=== PATIENT | female | born 1985 | race Caucasian/White ===

== ENCOUNTER 2016-10-14 17:16 | Inpatient (IN) | payer SELFPAY ==
[2016-10-14 17:38] VITALS: BMI 23.1
[2016-10-14] MEDS: Lactated Ringer's 1,000 ML IV SCH ×3 (18:20→21:25)
[2016-10-14 18:30] LABS: BASO % 0.3 % (0.0-2.0); EOS % 0.4 % (0.0-4.0); HEMOGLOBIN 11.5 g/dL (12.0-16.0); LYMPH # 0.9 K/uL (1.0-4.3); LYMPH % 13.1 % (20.0-40.0); MEAN CELL VOLUME 92.9 fl (81.0-99.0); MEAN CORPUSCULAR HEMOGLOBIN 31.1 pg (27.0-31.0); MEAN CORPUSCULAR HGB CONC 33.5 g/dL (33.0-37.0); MEAN PLATELET VOLUME 9.5 fl (7.2-11.7); MONO # 0.4 K/uL (0.0-0.8); MONO % 5.4 % (0.0-10.0); NEUT # 5.5 K/uL (1.8-7.0); NEUT % 80.8 % (50.0-75.0); RBC 3.7 Mil/uL (3.80-5.20); RED CELL DISTRIBUTION WIDTH 14.4 % (11.5-14.5); WHITE BLOOD COUNT 6.8 K/uL (4.8-10.8)
[2016-10-14 18:50] LABS: SQUAMOUS EPITHIAL 3 /hpf (0-5); URINE BACTERIA OCC (<OCC); URINE BILIRUBIN NEGATIVE (NEGATIVE); URINE BLOOD SMALL (NEGATIVE); URINE CLARITY CLEAR (Clear); URINE COLOR YELLOW (YELLOW); URINE GLUCOSE (UA) NEG (Normal); URINE LEUKOCYTE ESTERASE NEG Leu/uL (Negative); URINE NITRATE NEGATIVE (NEGATIVE); URINE PROTEIN NEGATIVE (NEGATIVE); URINE UROBILINOGEN 0.2-1.0 mg/dL (0.2-1.0)
--- NOTE | 2016-10-14 18:57 | OBHP ---
Datetime: 10/14/2016 18:36 IP Adm Impression: , intrauterine IP Admit Plan: Observation/Evaluation Admit Comment, IP Provider: 31-year-old 001 at 34 weeks and 2 days gestational age presented t o the ED complaining of contractions. Patient denies any vaginal bleeding or leakage of fluids. Patie nt reports good movement. Patient with a history of complete placenta previa also history of pr ior . Otherwise, patient without complaints. records reviewed. Past medical history none Past surgical history 1 Medications vitamins No known drug allergies Obstetrical history full-term 1 Social history no tobacco, no drugs, no alcohol Physical exam: Referred physical exam findings Assessment: 31-year-old 001 at 34 weeks and 2 days gestational age with placenta previa and prior C-sect ion with contractions. Maternal well-being and well-being reassuring at this time. Patient appe ars reasonably comfortable resting in bed Plan: Continue observation at OB ED IV fluid hydration First dose of betamethasone Check urinalysis, CBC, type and screen Discussed plan with patient and all patient questions answered. Extremities - PN: Normal Abdomen - PN: Normal Back - PN: Normal Lungs - PN: Normal Heart - PN: Normal Neurologic - PN: Normal HEENT - PN: Normal General - PN: Normal FHR - Baseline A Provider: 120s-130s Contraction Comments Provider: q9-10min Comments, ACOG Physical Exam: Abdomen soft, tender, nondistended, gravid No fundal tenderness Pelvic/cervical exam not done due to placenta previa IP Hx Assessment: The History has been Reviewed and is Current EGA AdmitDate IP: 34.2 Vital Signs Provider: Reviewed; Within Normal Limits IP Chief Complaint: Uterine contractions NICHD Variability Prov Fetus A: Moderate 6-25bpm NICHD Accel Fetus A IP Provider: 15X15 FHR Category Provider Fetus A: Category I NICHD Decel Fetus A IP Provider: None
[2016-10-14] MEDS: Betamethasone Soluspan 30 mg/5mL Inj Susp IM SCH (19:25)
[2016-10-15] MEDS: Lactated Ringer's 1,000 ML IV SCH (04:15)
--- NOTE | 2016-10-15 08:26 | OBHP ---
Datetime: 10/15/2016 06:27 IP Adm Impression: , intrauterine IP Admit Plan: Observation/Evaluation Admit Comment, IP Provider: 31-year-old 001 at 34.3 weeks gestational age presented to the ED complaining of contractions. Patient with a history of complete placenta previa also history of prior . Pt reports no contractions and feeling significantly better. Past medical history none Past surgical history 1 Medications vitamins No known drug allergies Obstetrical history full-term 1 Social history no tobacco, no drugs, no alcohol Physical exam: Referred physical exam findings Assessment: 31-year-old 001 at 34.4 weeks gestational age with placenta previa and prior with contractions. reports contraction has resolved and feeling significantly better. Maternal well-being and well-being reassuring at this time. Patient looks comfortable resting in bed. Plan: CBC shows no significant abnormality other than Hgb 11.5 UA is negative for UTI First dose of betamethasone was given Extremities - PN: Normal Abdomen - PN: Normal Back - PN: Normal Lungs - PN: Normal Heart - PN: Normal Neurologic - PN: Normal HEENT - PN: Normal General - PN: Normal FHR - Baseline A Provider: 120-130 Comments, ACOG Physical Exam: Abdomen soft, tender, nondistended, gravid No fundal tenderness Pelvic/cervical exam not done due to placenta previa Gestation - Est Wks by US: 34.3 IP Hx Assessment: The History has been Reviewed and is Current EGA AdmitDate IP: 34.3 Vital Signs Provider: Reviewed IP Chief Complaint: Uterine contractions NICHD Variability Prov Fetus A: Moderate 6-25bpm FHR Category Provider Fetus A: Category I NICHD Decel Fetus A IP Provider: None
--- NOTE | 2016-10-15 13:22 | OBPN ---
Datetime: 10/15/2016 13:00 IP Progress Impression Other: C/S IP Progress Impression: Reassuring heart rate IP Progress Plan: Transfer Pool Provider: Negative Membranes, Provider: Intact FHR - Baseline A Provider: 120 IP Progress Note Comment: OB Hospitalist on-call 34+w C/S x1 Placenta previa admitted for threatened PTL. No VB. She was given a dose of Betamethasone 19:30pm and she is due for another at 19:30pm today. She feels fine. No pain. No VB A: IUP at 34w/Placenta previa/threatened labor/C/S x 1 at 36w PLAN: Case was discussed with Dr Calvert. She will be admitted until delivery. Also, we discuss ed about possible transfer to high risk facility (possible accreta). Condition was explained to pt. She and her understand and their questions answered. [facility] ed to transfer. L_D at [facility] is full. He will make arrangements for transfer tomorrow. NICHD Accel Fetus A IP Provider: 15X15 FHR Category Provider Fetus A: Category I NICHD Variability Prov Fetus A: Moderate 6-25bpm Dilatation, Provider: 0 NICHD Decel Fetus A IP Provider: None Datetime: 10/15/2016 06:27 Gestation - Est Wks by US: 34.3 Vital Signs Provider: Reviewed Datetime: 10/14/2016 18:36 Contraction Comments Provider: q9-10min
[2016-10-15] MEDS ORDERED: Betamethasone Soluspan 30 mg/5mL Inj Susp IM ONE (19:30)
[2016-10-15] MEDS: Betamethasone Soluspan 30 mg/5mL Inj Susp IM SCH (20:01)
--- NOTE | 2016-10-16 07:54 | OBPN ---
Datetime: 10/16/2016 07:30 IP Progress Impression Other: 34w; previous C/S placenta previa IP Progress Impression: Reassuring heart rate; Reactive non-stress test IP Informed Consent Obtain: Risks, Benefits and Alternatives Discussed IP Progress Note Comment: She feels fine. She rec'd last dose of Betamethaosone at 19:30pm. Awaiting transfer to [facility] FHR Category Provider Fetus A: Category I
--- NOTE | 2016-10-16 16:34 | OBDCSUM ---
Datetime: 10/16/2016 16:32 Discharged to, Provider: Other Discharge Comment, Provider: Transfer to [facility] Discharge Diagnosis Prov Other: Transferred to [facility]...34+w placenta previa/Previous C/S x1
== END 2016-10-16 16:30 | disposition short-term general hospital (02) | DRG 886 ==
LOC: H.EROB2 17:16 → H.L&D 21:02 → OBSVTOIN 10-16 07:37
PROVIDERS: ADMIT Obstetrics & Gynecology; ATTEND Obstetrics & Gynecology
PROC: 4A1HXCZ Monitoring of Products of Conception, Cardiac Rate, External Approach (ICD-10-PCS; principal; 2016-10-16)
DX: O44.03 Complete placenta previa NOS or without hemorrhage, third trimester (principal); O60.03 Preterm labor without delivery, third trimester; O34.219 Maternal care for unspecified type scar from previous cesarean delivery; Z3A.34 34 weeks gestation of pregnancy

== ENCOUNTER 2018-07-19 09:41 | Emergency (ER) | payer OTHER ==
[2018-07-19 09:46] VITALS: BMI 25.4
--- NOTE | 2018-07-19 10:24 | ED PDOC ---
History of Present Illness History of Present Illness: 33 year old female with no past medical history who is presenting to the ED for evaluation of fevers, body aches, chills, sore throat, and lower abdominal pain ongoing for 2 days. Patient denies any urinary symptoms, nausea, vomiting, diarrhea, or cough. She offers no other medical complaints at this time. PMD: none provided HPI: Influenza Time Seen by Provider: 07/19/18 10:04 Chief Complaint (Provider): Flu-Like Symptoms History Per: Patient Exam Limitations: no limitations Onset/Duration Of Symptoms: Days (x2) Symptoms include: fever, bodyaches, sore throat. denies: cough, vomiting, diarrhea Past Medical History Reviewed: Historical Data, Nursing Documentation, Vital Signs Vital Signs: Last Vital Signs Temp 100.7 F H 07/19/18 09:44 Pulse 91 H 07/19/18 09:44 Resp 16 07/19/18 09:44 BP 108/62 07/19/18 09:44 Pulse Ox 100 07/19/18 09:44 - Medical History PMH: No Chronic Diseases - Surgical History Surgical History: No Surg Hx - Family History Family History: States: Unknown Family Hx - Social History Current smoker - smoking cessation education provided: No Alcohol: None Drugs: Denies - Home Medications Home Medications: Ambulatory Orders Medication Instructions Recorded Naproxen 500 mg PO BID #20 tablet 08/09/17 Azithromycin [Zithromax] 250 mg PO DAILY #6 tab 07/19/18 - Allergies Allergies/Adverse Reactions: Allergies Allergy/AdvReac Type Severity Reaction Status Date / Time No Known Allergies Allergy Verified 10/14/16 17:37 Review of Systems ROS Statement: Except As Marked, All Systems Reviewed And Found Negative Constitutional: Positive for: Fever, Chills, Other (body aches ) Respiratory: Negative for: Cough Gastrointestinal: Positive for: Abdominal Pain. Negative for: Nausea, Vomiting, Diarrhea Genitourinary Female: Negative for: Dysuria, Frequency, Incontinence, Hematuria Physical Exam - Reviewed Nursing Documentation Reviewed: Yes Vital Signs Reviewed: Yes - Physical Exam Appears: Positive for: Non-toxic, No Acute Distress Head Exam: Positive for: ATRAUMATIC, NORMAL INSPECTION, NORMOCEPHALIC Skin: Positive for: Normal Color, Warm, DRY Eye Exam: Positive for: EOMI, Normal appearance, PERRL ENT: Positive for: Normal ENT Inspection Neck: Positive for: Normal, Painless ROM, Supple Cardiovascular/Chest: Positive for: Regular Rate, Rhythm. Negative for: Murmur Respiratory: Positive for: Normal Breath Sounds. Negative for: Respiratory Distress Gastrointestinal/Abdominal: Positive for: Soft, Tenderness (to bilateral lower quadrants ). Negative for: Mass, Guarding, Rebound Back: Positive for: Normal Inspection. Negative for: L CVA Tenderness, R CVA Tenderness, Vertebral Tenderness Extremity: Positive for: Normal ROM. Negative for: Deformity, Swelling Neurological/Psych: Positive for: Awake, Alert, Normal Tone, Oriented. Negative for: Motor/Sensory Deficits Medical Decision Making Medical Decision Making: Time: 10:09 Plan: --CMP --ED Urine --ED urine dipstick --CBC --Tylenol 65 mg PO --Influenza A B Scribe Attestation: Documented by Brittani Montanez, acting as a scribe for Cecil Cowart MD. Provider Scribe Attestation: All medical record entries made by the Scribe were at my direction and personally dictated by me. I have reviewed the chart and agree that the record accurately reflects my personal performance of the history, physical exam, medical decision making, and the department course for this patient. I have also personally directed, reviewed, and agree with the discharge instructions and disposition. - Laboratory Results Result Diagrams: 07/19/18 10:28 07/19/18 10:28 - ECG O2 Sat by Pulse Oximetry: 100 (RA) Pulse Ox Interpretation: Normal Disposition - Clinical Impression Clinical Impression: Pharyngitis - Patient ED Disposition Is Patient to be Admitted: No Counseled Patient/Family Regarding: Studies Performed, Diagnosis, Need For Followup, Rx Given - Disposition Referrals: [facility] [Outside] Disposition: Routine/Home Disposition Time: 13:16 Condition: FAIR Prescriptions: Azithromycin [Zithromax] 250 mg PO DAILY #6 tab Instructions: Sore Throat in Adults Print Language: IRISH
[2018-07-19 10:46] LABS: BASO % 0.2 % (0.0-2.0); HEMOGLOBIN 12.7 g/dL (12.0-16.0); LYMPH # 0.6 K/uL (1.0-4.3); MEAN CELL VOLUME 90.5 fl (81.0-99.0); MEAN CORPUSCULAR HEMOGLOBIN 29.7 pg (27.0-31.0); MEAN CORPUSCULAR HGB CONC 32.8 g/dL (33.0-37.0); MEAN PLATELET VOLUME 9.2 fl (7.2-11.7); MONO # 0.5 K/uL (0.0-0.8); MONO % 4.4 % (0.0-10.0); NEUT % 90.4 % (50.0-75.0); NRBC % 0.1 % (0.0-0.0); PLATELET COUNT 205 K/uL (130-400); RBC 4.28 Mil/uL (3.80-5.20); RED CELL DISTRIBUTION WIDTH 12.9 % (11.5-14.5); WHITE BLOOD COUNT 12.2 K/uL (4.8-10.8)
[2018-07-19 11:06] LABS: ALB/GLOB RATIO 1.3 (1.0-2.1); ALBUMIN 4.9 g/dL (3.5-5.0); ALT/SGPT 47 U/L (9-52); AST/SGOT 36 U/L (14-36); BLOOD UREA NITROGEN 9 mg/dl (7-17); CALCIUM 9.4 mg/dL (8.4-10.2); GFR NON-AFRICAN AMERICAN > 60
[2018-07-19 12:48] VITALS: RESP 17
[2018-07-19 13:13] LABS: BANDS 4 % (0-2); LYMPHOCYTE 4 % (20-50); MONOCYTE 3 % (0-10); NEUTROPHIL 89 % (42-75); TOTAL CELLS COUNTED 100
[2018-07-19 13:14] LABS: PLATELET ESTIMATE NORMAL (NORMAL)
[2018-07-19 13:32] VITALS: BP 110/64; PULSE 74; TEMP 98.6; O2SAT 96
== END 2018-07-19 13:36 | disposition home or self-care (01) ==
LOC: H.ER 09:41
DX: J02.9 Acute pharyngitis, unspecified (principal)